=== PATIENT | male | born 1925 | race Caucasian/White ===

== ENCOUNTER → 2016-11-30 | Outpatient (CLI) | payer MEDICARE ==
[~2016-11-30] MED LIST: ASPIRIN325 MG PO; FISH OIL1000 MG PO; LISINOPRIL10 MG PO; NORCO 325 MG-51 TAB PO; PLAVIX75 MG PO; POTASSIUM PO; SIMVASTATIN40 MG PO
== END | disposition home or self-care (01) ==
LOC: RAD 10:34
DX: J98.4 Other disorders of lung (principal); Z95.1 Presence of aortocoronary bypass graft